=== PATIENT | female | born 1970 | race Caucasian/White ===

== ENCOUNTER → 2017-01-12 | Outpatient (CLI) | payer OTHER ==
[~2017-01-12] MED LIST: ACET500C PO; DOCU100C PO; GLYC3350 PO; LIDO1OIN2 TOP; MULTCAP11 PO; PERC5TAB6 PO; TRAN650T PO
--- NOTE | 2017-01-25 02:08 | ECWPNPC ---
PATIENT NAME: CHASITY THOMASON : 1970 GENDER: FEMALE VISIT DATE: 01/12/2017 DISCHARGE DATE: 01/12/17 1207 VISIT LOCKED DATE TIME: PHYSICIAN: ELIZABETH CARDENAS RESOURCE: ELIZABETH CARDENAS REASON FOR APPOINTMENT 1. NECK/ARM HISTORY OF PRESENT ILLNESS GENERAL: 47 YEAR OLD FEMALE PATIENT WITH HISTORY OF CHRONIC NECK PAIN. PATIENT DESCRIBES THE PAIN ACHING WITH A PAIN SCORE OF 2/10 ON TODAY'S VISIT. PATIENT REPORTS THAT TAKING GABAPENTIN PRESCRIBED BY HER PRIMARY IS GREATLY HELPING WITH PAIN RELIEF AND IT HAS TAKEN THE NUMBNESS IN THE ARM AWAY. PATIENT REPORTS THAT SHE IS USING A TENS UNIT AT HOME AND IT GREATLY HELPS WITH THE PAIN. PATIENT STATES AT THIS TIME THE PAIN IS MANAGEABLE AND SHE IS DOING WELL. PATIENT DENIES UNEXPLAINABLE WEIGHT LOSS, FEVER, CHILLS, NEW CHANGES ON HER URINARY OR BOWEL CONTROL. HISTORY OF PRESENT ILLNESS: PAIN THE PATIENT DESCRIBES THE PAIN... FALL RISK SCREENING: SCREENING :NO FALLS IN THE PAST YEAR CURRENT MEDICATIONS TAKING MULTIVITAMIN/IRON TABLET ORALLY DAILY TAKING ZOFRAN 8 MG TABLET 1 TABLET ORALLY DIRECTED PRN TAKING COLACE 100 MG CAPSULE 1 CAPSULE NEEDED ORALLY ONCE A DAY TAKING MIRALAX PACKET 1 PACKET MIXED WITH 8 OUNCES OF FLUID ORALLY ONCE A DAY TAKING ACETAMINOPHEN 500 MG CAPSULE ORALLY DIRECTED TAKING TRANEXAMIC ACID 650 MG TABLET 2 TABLETS ORALLY MONTHLY TAKING GABAPENTIN 300 MG CAPSULE 1 CAPSULE ORALLY FOUR TIMES DAILY FOR PAIN MEDICATION LIST REVIEWED AND RECONCILED WITH THE PATIENT PAST MEDICAL HISTORY HEAD INJURY IN 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 SOCIAL HISTORY GENERAL: TOBACCO USE ARE YOU A:NONSMOKER LEARNING BARRIERS / SPECIAL NEEDS ORIENTED TO PLAN OF CARE: PATIENT, PAIN MANAGEMENT PATIENT, ORIENTED TO PLAN OF CARE: PATIENT, PAIN MANAGEMENT PATIENT. NEW PATIENT PAIN DIARY TODAY'S VISITNOTES FROM 0-10, WHAT LEVEL IS YOUR PAIN TODAY?0 PAIN CLINIC PFS, CLERGY, PUBLIC HEALTH REFERRALS PFS REFERRAL NEEDED?NO CLERGY REFERRAL NEEDED?NO PUBLIC HEALTH REFERRAL NEEDED?NO WAS THE PROVIDER NOTIFIED OF ANY PERTINENT INFO?NO PFS REFERRAL NEEDED?NO CLERGY REFERRAL NEEDED?NO PUBLIC HEALTH REFERRAL NEEDED?NO WAS THE PROVIDER NOTIFIED OF ANY PERTINENT INFO?NO HOSPITALIZATION/MAJOR DIAGNOSTIC PROCEDURE SEE ABOVE REVIEW OF SYSTEMS CONSTITUTIONAL: ANY CHANGE IN YOUR MEDICAL CONDITION? NO . CHILLS NO . FEVER NO . INFECTION: DO YOU HAVE NEW INFECTIONS? NO . DO YOU HAVE HISTORY OF MRSA? NO . MUSCULOSKELETAL: ANY NEW PATTERNS OF PAIN OR NUMBNESS? NO . GASTROENTEROLOGY: ANY NEW CHANGE IN BOWEL CONTROL? NO . GENITOURINARY: ANY NEW CHANGE IN BLADDER CONTROL? NO . IS THERE A CHANCE YOU COULD BE ? NO . HEMATOLOGY/LYMPH: DO YOU TAKE ANY BLOOD THINNERS? (FOR EXAMPLE- COUMADIN, PLAVIX, AGGRENOX, PLATEL, PRADAXA, OR XARELTO) NO . WHEN WAS YOUR LAST DOSE? DATE: TIME: . NEUROLOGY: HAVE YOU FALLEN IN THE PAST 6 MONTHS? NO . ANY NEW EXTREMITY NUMBNESS OR WEAKNESS? NO . CARDIOLOGY: DO YOU HAVE A PACEMAKER OR DEFIBRILLATOR? NO . RESPIRATORY: HAVE YOU BEEN SICK IN THE PAST WEEK? NO . FEVER NO . FLU LIKE SYMPTOMS? NO . COUGH NO . INTEGUMENTARY: DO YOU HAVE ANY RASHES OR OPEN SORES? NO . ALLERGIC/IMMUNO: ARE YOU ALLERGIC TO SHELLFISH OR IV DYE? NO . ANY NEW ALLERGIES? NO . PSYCHIATRIC: DO YOU HAVE THOUGHTS OF HURTING YOURSELF OR SOMEONE ELSE? NO . ARE YOU ABUSED, NEGLECTED, OR IN AN UNSAFE ENVIRONMENT? NO . ENDOCRINOLOGY: ARE YOU DIABETIC? NO . OTHER: DO YOU NEED ANY PRESCRIPTIONS? NO . IF YES, PLEASE LIST: ____ . ANY NEW PROBLEMS WITH YOUR MEDICATIONS? NO . WHEN DID YOU LAST EAT? ____ . WHEN DID YOU LAST DRINK? ____ . WHAT DID YOU LAST DRINK? ____ . NAME OF PERSON DRIVING YOU HOME? ____ . DO YOU HAVE ANY OTHER QUESTIONS OR CONCERNS NO . REVIEWED BY: PROVIDER: ELIZABETH CARDENAS MD . VITAL SIGNS WT 139.2 LBS, HT 63 IN, BMI 24.66 INDEX, BP 125/67 MM HG, HR 69 /MIN, RR 16 /MIN, TEMP 98.0 F, OXYGEN SAT % 97%, NA INITIALS TL 1124, REVIEWED BY: [facility] WEIGHED ON [facility] WEIGHT SCALE-TL. EXAMINATION GENERAL: PATIENT IS ALERT O X 3 AND COOPERATIVE. MRI OF THE CERVICAL SPINE DONE IN AUGUST 2013 SHOWING A DISC HERNIATION AT C4-C5 AND C5-C6. ASSESSMENTS MYALGIA - M79.1 (PRIMARY) TREATMENT MYALGIA REFILL GABAPENTIN CAPSULE, 300 MG, 1 CAPSULE, ORALLY, FOUR TIMES DAILY FOR PAIN, 30 DAY(S), 120, REFILLS 2 NOTES: WE DISCUSSED SEVERAL ISSUERS WITH MRS. THOMASON'S PAIN MANAGEMENT CASE. AT THIS TIME THE PATIENT WILL PROCEED WITH THE SAME MEDICATION MANAGEMENT CASE BEFORE. PATIENT IS HAVING GOOD RESULTS FROM GABAPENTIN. WE DISCUSSED OTHER MEDICATIONS THAT MAY BE BENEFICIAL TO PAIN MANAGEMENT BUT THE PATIENT WOULD PREFER TO CONTINUE WITH GABAPENTIN DUE TO IT BEING A VERY SAFE MEDICATION. PATIENT WILL RECEIVE A REFILL OF GABAPENTIN TODAY. SINCE THE PATIENT IS DOING WELL AT THIS TIME, I INFORMED THE PATIENT THAT I CAN SEE HER IN ONE YEAR FROM TODAY HER REFERRAL WILL BE GOOD FOR ONE YEAR, I WILL NOT NEED ANOTHER TO SEE HER. PATIENT AGREES WITH THE PLAN. ALSO INFORMED THE PATIENT THAT SHE THE PAIN RETURN GIVE US A CALL. INSTRUCTIONS WERE GIVEN, QUESTIONS WERE ANSWERED, PATIENT REPORTS UNDERSTANDING AND AGREES WITH THE PLAN. I, JOSELYN MENDEZ, DOCUMENTED THE ABOVE INFORMATION ACTING A SCRIBE FOR DR. CARDENAS. I HAVE REVIEWED THE ABOVE DOCUMENT, WRITTEN BY JOSELYN MENDEZ SCRIBLuke AND I VERIFY THAT IT IS ACCURATE. PROCEDURE CODES FA211 ESTABILISHED PATIENT [facility] FACILITY CHARGE G8730 PAIN ASSESS POS TOOL F/U PLAN DOC G8427 DOC MEDS VERIFIED W/PT OR RE DISPOSITION & COMMUNICATION FOLLOW UP 1 YEAR ELECTRONICALLY SIGNED BY ELIZABETH CARDENAS MD ON 01/23/2017 AT 06:39 PM EDT DISCLAIMER : THIS IS A VISIT SUMMARY EXTRACTED FROM THE [employer] CHART. IT IS NOT A COPY OF THE [employer] PROGRESS NOTE. MTDD
== END | disposition home or self-care (01) ==
LOC: M PAIN 11:00
PROVIDERS: ATTEND Anesthesiology
DX: G89.29 Other chronic pain (principal); M79.1 Myalgia; M26.609 Unspecified temporomandibular joint disorder, unspecified side; Z85.3 Personal history of malignant neoplasm of breast; Z87.828 Personal history of other (healed) physical injury and trauma; Z79.899 Other long term (current) drug therapy; Z88.8 Allergy status to other drugs, medicaments and biological substances; Z91.018 Allergy to other foods

== ENCOUNTER → 2017-12-14 | Outpatient (CLI) | payer OTHER | LOC: M PAIN 13:00 | DX: M54.12 Radiculopathy, cervical region (principal); M79.1 Myalgia; G89.29 Other chronic pain; Z79.899 Other long term (current) drug therapy; Z88.8 Allergy status to other drugs, medicaments and biological substances; Z91.018 Allergy to other foods; Z90.13 Acquired absence of bilateral breasts and nipples; Z87.820 Personal history of traumatic brain injury; Z85.3 Personal history of malignant neoplasm of breast | CPT/HCPCS: G0463 ==

== ENCOUNTER → 2018-11-11 | Outpatient (CLI) | payer OTHER ==
[~2018-11-11] MED LIST changes: +PERC5TAB12 PO; -PERC5TAB6 PO
--- NOTE | 2018-11-25 00:09 | ECWPNPC ---
PATIENT NAME: CHASITY THOMASON : 1970 GENDER: FEMALE VISIT DATE: 11/11/2018 DISCHARGE DATE: 11/11/18 1329 VISIT LOCKED DATE TIME: PHYSICIAN: ELIZABETH CARDENAS MD RESOURCE: ELIZABETH CARDENAS MD REASON FOR APPOINTMENT 1. NECK/ARM HISTORY OF PRESENT ILLNESS HISTORY OF PRESENT ILLNESS: PAIN THE PATIENT DESCRIBES THE PAIN... THE PATIENT DESCRIBES THE PAIN... 48 YEAR OLD FEMALE PATIENT WITH A HISTORY OF CHRONIC NECK PAIN. THE PATIENT DESCRIBES THE PAIN ACHING, SORE, AND CONTINUOUS WITH A PAIN SCORE OF 4-10/10 DEPENDING ON PHYSICAL ACTIVITY. THE PATIENT SAYS THE PAIN STARTS IN HER NECK AND RADIATES DOWN HER RIGHT ARM. THE PATIENT SAYS THAT SHE HAS TINGLING AND NUMBNESS DOWN HER RIGHT ARM AND OCCASIONALLY IS UNABLE TO CLOSER HER HAND DUE TO PAIN. THE PATIENT IS CURRENTLY USING GABAPENTIN TO AID IN PAIN RELIEF, BUT SAYS IT IS NOT HELPING MUCH. PATIENT DENIES UNEXPLAINABLE WEIGHT LOSS, FEVER, CHILLS, NEW CHANGES ON HER URINARY OR BOWEL CONTROL. FALL RISK SCREENING: SCREENING : NO FALLS IN THE PAST YEAR. SCREENING : NO FALLS IN THE PAST YEAR. 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 CANCER - HAD BILATERAL MASTECTOMY WITH RECONSTRUCTIVE OR ALLERGIES INDOMETHACIN: LIGHTHEADED AND SPACY WHEAT: ILL/ VOMIT/ DIARRHEA SAFFLOUR: DIARRHEA SURGICAL HISTORY D&C 07/17/13 MASTECTOMY BILATERAL 2014 TOTAL HYSTERECTOMY 04/2018 FAMILY HISTORY FATHER: ALIVE 72 YRS MOTHER: ALIVE 71 YRS, COLITIS, DIAGNOSED WITH DIABETES SOCIAL HISTORY GENERAL: TOBACCO USE ARE YOU A:NONSMOKER ALCOHOL SCREENING DID YOU HAVE A DRINK CONTAINING ALCOHOL IN THE PAST YEAR?YES HOW OFTEN DID YOU HAVE A DRINK CONTAINING ALCOHOL IN THE PAST YEAR?MONTHLY OR LESS (1 POINT) HOW MANY DRINKS DID YOU HAVE ON A TYPICAL DAY WHEN YOU WERE DRINKING IN THE PAST YEAR?1 OR 2 (0 POINTS) HOW OFTEN DID YOU HAVE SIX OR MORE DRINKS ON ONE OCCASION IN THE PAST YEAR?NEVER (0 POINTS) POINTS1 INTERPRETATIONNEGATIVE RECREATIONAL DRUG USE DRUG USE?NO CAFFEINE CAFFEINE USE?YES HOW OFTEN AND HOW MUCH? 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 DIET: GLUTEN FREE. EXERCISE: TREADMILL, WEIGHTS, ROWING. NEW PATIENT PAIN DIARY TODAY'S VISITNOTES FROM 0-10, WHAT LEVEL IS YOUR PAIN TODAY?0 PAIN CLINIC PFS, CLERGY, PUBLIC HEALTH REFERRALS PFS REFERRAL NEEDED?NO CLERGY REFERRAL NEEDED?NO PUBLIC HEALTH REFERRAL NEEDED?NO WAS THE PROVIDER NOTIFIED OF ANY PERTINENT INFO?NO PFS REFERRAL NEEDED?NO CLERGY REFERRAL NEEDED?NO PUBLIC HEALTH REFERRAL NEEDED?NO WAS THE PROVIDER NOTIFIED OF ANY PERTINENT INFO?NO ADVANCE DIRECTIVE ADVANCE DIRECTIVE DISCUSSED WITH PATIENT: GILSON SO [phone] HOSPITALIZATION/MAJOR DIAGNOSTIC PROCEDURE SEE ABOVE REVIEW OF SYSTEMS REVIEWED BY: PROVIDER: ELIZABETH CARDENAS MD . CONSTITUTIONAL: ANY CHANGE IN YOUR MEDICAL CONDITION? NO, NO . CHILLS NO, NO . FEVER NO, NO . INFECTION: DO YOU HAVE NEW INFECTIONS? NO, NO . DO YOU HAVE HISTORY OF MRSA? NO, NO . MUSCULOSKELETAL: ANY NEW PATTERNS OF PAIN OR NUMBNESS? YES, NO . GASTROENTEROLOGY: ANY NEW CHANGE IN BOWEL CONTROL? NO, NO . GENITOURINARY: ANY NEW CHANGE IN BLADDER CONTROL? NO, NO . IS THERE A CHANCE YOU COULD BE ? NO, NO . HEMATOLOGY/LYMPH: DO YOU TAKE ANY BLOOD THINNERS? (FOR EXAMPLE- COUMADIN, PLAVIX, AGGRENOX, PLATEL, PRADAXA, OR XARELTO) NO, NO . WHEN WAS YOUR LAST DOSE? DATE: TIME: , DATE: TIME: . NEUROLOGY: HAVE YOU FALLEN IN THE PAST 12 MONTHS? NO, NO . ANY NEW EXTREMITY NUMBNESS OR WEAKNESS? YES, NO . CARDIOLOGY: DO YOU HAVE A PACEMAKER OR DEFIBRILLATOR? NO, NO . RESPIRATORY: HAVE YOU BEEN SICK IN THE PAST WEEK? YES, NO . FEVER YES, NO . FLU LIKE SYMPTOMS? NO, NO . COUGH YES, NO . INTEGUMENTARY: DO YOU HAVE ANY RASHES OR OPEN SORES? NO, NO . ALLERGIC/IMMUNO: ARE YOU ALLERGIC TO IV DYE? NO, NO . ANY NEW ALLERGIES? NO, NO . PSYCHIATRIC: DO YOU HAVE THOUGHTS OF HURTING YOURSELF OR SOMEONE ELSE? NO, NO . ARE YOU ABUSED, NEGLECTED, OR IN AN UNSAFE ENVIRONMENT? NO, NO . ENDOCRINOLOGY: ARE YOU DIABETIC? NO, NO . OTHER: DO YOU NEED ANY PRESCRIPTIONS? NO, NO . IF YES, PLEASE LIST: ____, ____ . ANY NEW PROBLEMS WITH YOUR MEDICATIONS? NO, NO . WHEN DID YOU LAST EAT? ____, ____ . WHEN DID YOU LAST DRINK? ____, ____ . WHAT DID YOU LAST DRINK? ____, ____ . NAME OF PERSON DRIVING YOU HOME? ____, ____ . DO YOU HAVE ANY OTHER QUESTIONS OR CONCERNS NO, NO . VITAL SIGNS WT 144.6 LBS, HT 63 IN, BMI 25.61 INDEX, BP 124/71 MM HG, HR 77 /MIN, RR 16 /MIN, TEMP 97.8 F, OXYGEN SAT % 96%, NA INITIALS SC 11:15, REVIEWED BY: LISSET. EXAMINATION GENERAL EXAMINATION: PATIENT IS ALERT O X 3 AND COOPERATIVE. TENDERNESS OVER THE NECK AREA. RIGHT ARM IS WEAKER AT EXTENSION AND FLEXION. 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 MRI OF THE CERVICAL SPINE DONE ON 10/16/2018 SHOWS A BULGING DISC AT C4-C5 AND C5-C6. ASSESSMENTS CERVICAL DISC DISORDER WITH RADICULOPATHY OF CERVICAL REGION - M50.10 (PRIMARY) TREATMENT CERVICAL DISC DISORDER WITH RADICULOPATHY OF CERVICAL REGION CLINICAL NOTES: WE DISCUSSED SEVERAL ISSUES WITH MRS. THOMASON'S PAIN MANAGEMENT CASE. I WOULD LIKE THE PATIENT TO START USING CYMBALTA FOR THE NEUROPATHIC PAIN. DUE TO THE CERVICAL RADICULOPATHY, I WOULD LIKE TO MOVE FORWARD WITH A CERVICAL EPIDURAL STEROID INJECTION AT THIS TIME. WE DISCUSSED THE BENEFITS, RISKS, AND ALTERNATIVES OF THE INJECTION AND THE PATIENT WOULD LIKE TO PROCEED. I WILL ALSO REFER THE PATIENT TO KESHIA MOBLEY FOR A SURGICAL CONSULTATION. I WILL SEND THE PROVIDER AGREEMENT FORM TO THE PATIENT'S PRIMARY CARE PHYSICIAN REGARDING HER MEDICATIONS. THE PATIENT WILL FOLLOW UP 1 MONTH AFTER THE INJECTION. INSTRUCTIONS WERE GIVEN, QUESTIONS WERE ANSWERED, PATIENT REPORTS UNDERSTANDING AND AGREES WITH THE PLAN. I, RYANNE PALOMINO, DOCUMENTED THE ABOVE INFORMATION ACTING A SCRIBE FOR DR. CARDENAS. I HAVE REVIEWED THE ABOVE DOCUMENT, WRITTEN BY RYANNE PALOMINO SCRIBLuke AND I VERIFY THAT IT IS ACCURATE. OTHERS START CYMBALTA CAPSULE DELAYED RELEASE PARTICLES, 30 MG, 1 CAPSULE, ORALLY WITH FOOD, ONCE A DAY FOR PAIN, 30 DAY(S), 30, REFILLS 1 NOTES: CERVICAL EPIDURAL INJECTION: YOUR EXPERIENCE MATERIAL WAS PRINTED,CERVICAL EPIDURAL INJECTION MATERIAL WAS PRINTED. PREVENTIVE MEDICINE PAIN CLINIC TEACHING: MEDICATIONS NEW MEDICATION CYMBALTA WRITTEN INFORMATION REGARDING USAGE PROVIDED TO PT.. PROCEDURE CODES FA211 ESTABILISHED PATIENT [facility] FACILITY CHARGE G8427 CURRENT MEDS W/DOSAGES DOCUMENTED G8730 PAIN ASSESS POS TOOL F/U PLAN DOC DISPOSITION & COMMUNICATION FOLLOW UP 2 MONTHS ELECTRONICALLY SIGNED BY ELIZABETH CARDENSA MD, MD ON 11/23/2018 AT 07:06 PM EDT DISCLAIMER : THIS IS A VISIT SUMMARY EXTRACTED FROM THE [employer] CHART. IT IS NOT A COPY OF THE [employer] PROGRESS NOTE. LILIANA
== END ==
LOC: M PAIN 11:00
PROVIDERS: ATTEND Anesthesiology
DX: M50.10 Cervical disc disorder with radiculopathy, unspecified cervical region (principal); G89.29 Other chronic pain; Z79.899 Other long term (current) drug therapy; Z88.8 Allergy status to other drugs, medicaments and biological substances; Z91.018 Allergy to other foods; Z90.13 Acquired absence of bilateral breasts and nipples; Z85.3 Personal history of malignant neoplasm of breast; Z87.820 Personal history of traumatic brain injury